=== PATIENT | female | born 1955 | race Caucasian/White ===

== ENCOUNTER 2018-03-06 08:50 | Day surgery (SDC) | payer OTHER ==
[~2018-03-06] VITALS: Ht 154.9 cm; Wt 72.6 kg
[~2018-03-06 08:50] MED LIST: CEFAZOLIN SOD 2 GM in D5W 50 ML IV ONE
[2018-03-06] MEDS ORDERED: KETOROLAC TROMETHAMINE 30 MG VIAL IVP PRN (10:30)
[2018-03-06] MEDS ORDERED: ONDANSETRON HCL 4 MG/2 ML VIAL IVP PRN (10:30)
[2018-03-06] MEDS ORDERED: fentaNYL CITRATE/PF 100 MCG/2 ML AMP IVP PRN ×2 (10:30)
[2018-03-06] MEDS ORDERED: BUPIVACAINE /EPINEPHRINE/PF 0.5% 30 ML VIAL INJ ONE (10:45)
[2018-03-06] MEDS ORDERED: MORPHINE SULFATE 10MG/10ML PF AMP EP ONE (10:45)
[2018-03-06] MEDS ORDERED: LR 1,000 ML IV.SOLN IV ONE (10:45)
[2018-03-06] MEDS ORDERED: SEVOFLURANE 15 MIN GAS INH ONE (10:45)
[2018-03-06] MEDS ORDERED: fentaNYL CITRATE/PF 100 MCG/2 ML AMP IVP ONE (10:45)
[2018-03-06] MEDS ORDERED: MIDAZOLAM HCL 5 MG/ML VIAL (VERSED) IV ONE (10:45)
[2018-03-06] MEDS ORDERED: NS IRRIG SOLN 5000 ML IR ONE (10:45)
[2018-03-06] MEDS ORDERED: PROPOFOL 200MG/ 20ML VIAL (DIPRIVAN) IV ONE (10:45)
[2018-03-06] MEDS ORDERED: BETAMET ACET/BETAMET NA PH 30 MG/5 ML VIAL IM ONE (10:45)
[2018-03-06] MEDS ORDERED: BUPIVACAINE /PF 0.25% 30 ML VIAL INJ ONE (10:45)
[2018-03-06] MEDS ORDERED: DIPHENHYDRAMINE HCL 25 MG CAPSULE PO PRN (11:00)
[2018-03-06] MEDS ORDERED: MORPHINE 4 MG/ML INJ. SYRINGE IVP PRN (11:00)
[2018-03-06] MEDS ORDERED: HYDROcodone/ACETAMIN 5-325 MG TAB (NORCO/ VICODIN) PO PRN (11:00)
[2018-03-06] MEDS ORDERED: ACETAMINOPHEN 325 MG TABLET PO PRN (11:00)
[2018-03-06] MEDS ORDERED: LR 1,000 ML IV SCH (11:00)
[2018-03-06 14:04] VITALS: BP_SYST 128
[2018-03-12 14:06] LABS: HEPATITIS B CORE AB, TOTAL Negative (Negative); HEPATITIS B SURFACE AG Negative (Negative); HEPATITIS C VIRUS AB <0.1 s/co ratio (0.0-0.9)
== END 2018-03-06 12:40 | disposition home or self-care (01) ==
LOC: SMU 08:50 → SDS 08:50
PROVIDERS: ATTEND Orthopaedic Surgery
DX: S83.282A Other tear of lateral meniscus, current injury, left knee, initial encounter (principal); S83.242A Other tear of medial meniscus, current injury, left knee, initial encounter; X58.XXXA Exposure to other specified factors, initial encounter; Y93.9 Activity, unspecified; Y92.89 Other specified places as the place of occurrence of the external cause; Y99.9 Unspecified external cause status; M17.12 Unilateral primary osteoarthritis, left knee; I10 Essential (primary) hypertension; E11.9 Type 2 diabetes mellitus without complications; Z79.84 Long term (current) use of oral hypoglycemic drugs; Z79.899 Other long term (current) drug therapy; E78.5 Hyperlipidemia, unspecified; G47.00 Insomnia, unspecified; Z68.32 Body mass index [BMI] 32.0-32.9, adult
CPT/HCPCS: 29880; 36415; 86704; 86706; 86803; 87340; 87536; J0690; J7060; J7120; J0702; J2250; J2274; J2704; J3010; J3490

== ENCOUNTER 2018-07-24 11:20 | Outpatient (CLI) | payer OTHER | END 2018-07-24 21:33 | disposition home or self-care (01) | LOC: SMA 11:20 | PROVIDERS: ATTEND Family Medicine | DX: Z12.31 Encounter for screening mammogram for malignant neoplasm of breast (principal) | CPT/HCPCS: 77067 ==